=== PATIENT | male | born 1955 | race African-American/Black ===

== ENCOUNTER 2016-11-22 15:39 | Outpatient (CLI) | payer OTHER ==
--- NOTE | 2016-11-22 18:33 | MRI ---
MRI OF THE LEFT SHOULDER PERFORMED WITHOUT CONTRAST ENHANCEMENT: Date: 11/22/16 HISTORY: Limited range of motion. Patient fell in July off of a ladder. FINDINGS: There are some mild to moderate AC joint hypertrophic changes present. There is a complex supraspinatus tendon tear. The tendon is retracted by approximately 3.8 cm. The t ear extends into the infraspinatus tendon. There is wavy contour to the infraspinatus tendon and arnold ma changes extending into the muscle belly. There is a lipoma directly anterior to the infraspinatus muscle causing impression on the anterior border. The subscapularis tendon shows some tendinopathy change. The biceps tendon is normal in position wit hin the bicipital groove. There is an extensive labral tear beginning at the level of the superior labrum. I believe this is a n almost circumferential labral tear. There are mild arthritic changes of the glenohumeral joint. IMPRESSION: 1. Lipoma lying along the posterior body of the glenoid neck directly anterior to the infraspinatus tendon. 2. Massive rotator cuff tear. There is complete tear of the supra and partial tear of the infraspin atus tendon. The tendon is retracted by about 3.8 cm. Mild atrophy of the superior fibers of the inf raspinatus muscle and some edema changes within the muscle belly. 3. Extensive labral tear, which is probably circumferential. POS: OFF
== END 2016-11-22 15:40 | disposition home or self-care (01) ==
LOC: MRI 15:39
PROVIDERS: ATTEND Family Medicine
DX: S49.92XD Unspecified injury of left shoulder and upper arm, subsequent encounter (principal); S46.012D Strain of muscle(s) and tendon(s) of the rotator cuff of left shoulder, subsequent encounter; D17.9 Benign lipomatous neoplasm, unspecified

== ENCOUNTER 2016-12-22 14:26 | Outpatient (CLI) | payer OTHER ==
[2016-12-22 16:45] LABS: #Eosinphils 0.2 thou/uL (0.0-0.7); #Lymphocytes 2.2 thou/uL (1.20-3.40); #Monocytes 0.8 thou/uL (0.11-0.59); #Neutrophils 2.2 thou/uL (1.40-6.50); %Basophils 0.8 % (0.0-1.0); %Eosinophils 3.2 % (0.0-10.0); %Lymphocytes 40.6 % (21.0-51.0); %Monocytes 14.3 % (0.0-10.0); Hematocrit 39.1 % (42.0-52.0); Mean Platelet Volume 8.1 fL (7.4-10.4); White Blood Cell (WBC) Count 5.4 thou/uL (4.8-10.8)
[2016-12-22 17:09] LABS: Anion Gap 11 mmol/L (10-20); BUN (Urea Nitrogen) 13 mg/dL (8.4-25.7); Calc. Creatinine Clearance 0 mL/min (70-130); Calcium 9.9 mg/dL (7.8-10.44); Carbon Dioxide 29 mmol/L (22-29); Chloride 102 mmol/L (98-107); Estimated GFR-MDRD Greater than 90
--- NOTE | 2016-12-23 15:24 | EKG ---
Test Reason : PREOP Blood Pressure : / mmHG Vent. Rate : 067 BPM Atrial Rate : 067 BPM P-R Int : 182 ms QRS Dur : 106 ms QT Int : 392 ms P-R-T Axes : 015 063 000 degrees QTc Int : 414 ms Normal sinus rhythm Nonspecific ST-T changes When compared with ECG of 04-JUN-2015 14:31, No significant change was found Confirmed by DR. Mendy INFANTE ([id number]) on 12/23/2016 3:23:51 PM Referred By: ESTEFANI Confirmed By:DR. Mendy INFANTE
== END 2016-12-22 14:27 | disposition home or self-care (01) ==
LOC: LABBT 14:26
PROVIDERS: ATTEND Orthopaedic Surgery
DX: Z01.818 Encounter for other preprocedural examination (principal); M75.122 Complete rotator cuff tear or rupture of left shoulder, not specified as traumatic
CPT/HCPCS: 80048; 85025; 93005; 93010

== ENCOUNTER 2016-12-23 06:43 | Day surgery (SDC) | payer OTHER ==
[2016-12-22 14:50] VITALS: BMI 32.8
[2016-12-23] MEDS ORDERED: CEFAZOLIN/Water 2 GM/20 ML SYRINGE ONE (07:09)
[2016-12-23] MEDS ORDERED: Midazolam HCl 2 mg/2 ml Vial ONE (07:14)
[2016-12-23] MEDS ORDERED: Ropivacaine 0.2% HCl/PF 20 ML ONE (07:14)
[2016-12-23] MEDS ORDERED: Fentanyl 100 MCG/2 ML VIAL ONE ×2 (07:14→07:49)
[2016-12-23] MEDS ORDERED: traMADol HCl 50 MG TAB PO PRN ×2 (07:38)
[2016-12-23] MEDS ORDERED: HYDROcodone/Acetaminophen 10/325 mg Tablet PO PRN ×2 (07:38)
[2016-12-23] MEDS ORDERED: Ketorolac Tromethamine 30 MG/ML VIAL IVP PRN (07:38)
[2016-12-23] MEDS ORDERED: Ondansetron HCl/PF 4 MG/2 ML Vial IVP PRN (07:38)
[2016-12-23] MEDS ORDERED: Promethazine HCl 25 MG/ML VIAL IM PRN (07:38)
[2016-12-23] MEDS ORDERED: Ropivacaine 0.2% 550 ML 550 ML NERVE BLCK SCH (07:38)
[2016-12-23] MEDS ORDERED: Zolpidem Tartrate 5 MG TAB PO PRN (07:38)
[2016-12-23] MEDS ORDERED: Fentanyl 100 MCG/2 ML VIAL IV PRN (07:39)
[2016-12-23] MEDS ORDERED: Ondansetron HCl/PF 4 MG/2 ML Vial ONE (08:04)
[2016-12-23] MEDS ORDERED: ePHEDrine/0.9% NaCl/PF SYRINGE 50 mg/10 ml ONE ×2 (08:04)
[2016-12-23] MEDS ORDERED: Glycopyrrolate 0.2 MG/ML 5 ML SYRINGE ONE (08:04)
[2016-12-23] MEDS ORDERED: Propofol 200 MG/20 ML VIAL ONE (08:04)
[2016-12-23] MEDS ORDERED: Ketorolac Tromethamine 30 MG/ML VIAL ONE (08:04)
[2016-12-23] MEDS ORDERED: Lidocaine 2% PF 10 ML AMP (For Epidural Use) ONE (08:04)
--- NOTE | 2016-12-23 12:08 | OP ---
DATE OF PROCEDURE: 12/23/2016 PREOPERATIVE DIAGNOSES: Massive rotator cuff tear, circumferential labrum tear, subscapularis tear. POSTOPERATIVE DIAGNOSES: Massive rotator cuff tear, circumferentially labrum tear, subscapularis te ar. SURGEON: Steven Bauer M.D. ANESTHESIA: General. BLOOD LOSS: Minimal. SPECIMEN: None. DRAINS: None. COMPLICATIONS: None. ELECTRIC TOOL REPAIRER: No medication assistant was used. FINDINGS AT SURGERY: After induction of anesthesia, he was noted to have a very stiff shoulder on p reoperative exam, so I attempted to manipulate his shoulder and improve his range of motion. I was not able to do this. His shoulder was frozen, I could not elevate his arm above 90 degrees under ge neral anesthesia with complete paralysis. I could only get 30 degrees of external rotation. The [facility] arm was prepped and draped in the usual sterile fashion. I made a standard deltoid splitting jody sewell. Anterior and inferior acromioplasty was performed. There was very little bursitis. The bur sa was removed. The CA ligament was taken down. The biceps was split longitudinally. I detached t his from the superior glenoid tubercle. I took a large portion which was only 7 mm surprisingly for a man this size. I fashioned a 25 mm of Cofield stitch and removed about another proximal 1 inch of this, sized to a size 7. I drilled a 7 mm hole and delivered the tendon to the bottom of the bone tunnel and fixed this with an interference screws 7 mm Arthrex Bio-Tenodesis screw and tied sutures over the top. The rotator cuff was mobilized. I was able to get to an elastic consistency and I wa s actually able to cover the head. I was able to cover the head with the arm at the side; however, the tissue was fairly thin. I used a cottony Dacron suture and made a convergence type stitch repai ring anterior to posterior aspect and then used a suture anchor laterally, triple-loaded to sew the tendon down to freshen up cancellous bone. This was then reinforced with a double row repair using Arthrex SwiveLock device. The subscapularis was repaired back, also with an anchor down to freshen bone. The irrigation was performed. The deltoid was repaired back with #1 Ethibond suture. Subcut aneous tissue closed with 2-0 Vicryl, the skin was closed with simin. Sterile dressings applied. There were no complications.
== END 2016-12-23 11:45 | disposition home or self-care (01) ==
LOC: SDC 06:43
PROVIDERS: ATTEND Orthopaedic Surgery
PROC: 0LQ20ZZ Repair Left Shoulder Tendon, Open Approach (ICD-10-PCS; principal; 2016-12-23)
DX: M75.122 Complete rotator cuff tear or rupture of left shoulder, not specified as traumatic (principal); Z98.890 Other specified postprocedural states
CPT/HCPCS: A4306; C1713; G8984-GP-CN; G8985-GP-CN; G8986-GP-CN; J1885; J2001; J2250; J2405; J2704; J2795; J3010